=== PATIENT | female | born 1975 | race Caucasian/White ===

== ENCOUNTER 2020-03-28 10:50 | Emergency (ER) | payer MEDICARE, OTHER ==
[~2020-03-28] VITALS: Ht 162.6 cm; Wt 99.8 kg
--- NOTE | 2020-03-29 18:12 | EKG ---
[facility] [address] [facility] [place], [place] [address] Signed Normal sinus rhythm Low voltage QRS Borderline ECG No previous ECGs available Confirmed by VIKA MCDONALD DO ([id number]) on 03/29/2020 6:12:02 PM Electronically Signed By: VIKA MCDONALD DO 03/29/20 181 PATIENT NAME: STEFAN REYES MARIBELL Electrocardiogram DATE OF : 79 PHYSICIAN: VIKA MCDONALD DO REPORT #: [id number] REPORT IS CONFIDENTIAL AND NOT TO BE RELEASED WITHOUT AUTHORIZATION
== END 2020-03-28 13:05 | disposition home or self-care (01) ==
LOC: ED 10:50
DX: U07.1 COVID-19 (principal); J40 Bronchitis, not specified as acute or chronic
CPT/HCPCS: 71045; 80053; 83735; 84484; 85025; 93005; 93010; 99285-25